=== PATIENT | female | born 1985 | race Two or more races ===

== ENCOUNTER 2021-03-25 16:36 | Inpatient (IN) | payer MEDICAID, OTHER ==
[~2021-03-25] VITALS: Ht 154.9 cm; Wt 44.0 kg
[2021-03-25] MEDS ORDERED: DOBUTamine 1000MCG/ML 250 ML IV ONE ×2 (17:00→19:15)
[2021-03-25 17:50] LABS: Basophils # (auto) 0 10 ^3/uL (0-0.2); Basophils % (auto) 0.6 % (0.0-2.0); Eosinophils # (auto) 0.1 10 ^3/uL (0-0.8); Eosinophils % (auto) 2.2 % (0.0-7.0); Hematocrit 43.3 % (36.0-46.0); Hemoglobin 14.6 g/dL (12.2-16.2); Lymphocytes # (auto) 1.3 10 ^3/uL (0.4-5.4); Lymphocytes % (auto) 32.2 % (10.0-50.0); Mean Corpuscular Hemoglobin 31.3 pg (28.0-32.0); Mean Corpuscular Hgb Conc. 33.8 g/dL (32.0-36.0); Mean Corpuscular Volume 92.6 fL (80.0-100.0); Monocytes # (auto) 0.3 10 ^3/uL (0-1.3); Monocytes % (auto) 7.1 % (0.0-12.0); Neutrophils # (auto) 2.4 10 ^3/uL (1.6-8.6); Neutrophils % (auto) 57.9 % (37.0-80.0); Nucleated Red Blood Cells % 0.1 %; Red Blood Cells 4.68 10^6/uL (4.0-5.20); Red Cell Distribution Width 13.2 % (11.8-14.3); White Blood Cell 4.1 10^3/uL (4.4-10.8)
[2021-03-25 18:08] LABS: Alanine Aminotransferase 35 U/L (13-56); Anion Gap 7 (5-15); Aspartate Aminotransferase 26 U/L (15-37); BUN/Creatinine Ratio 14.3; Blood Urea Nitrogen 10 mg/dL (7-18); Calcium 8.7 mg/dL (8.5-10.1); Carbon Dioxide 24 mmol/L (21-32); Chloride 109 mmol/L (98-107); GFR African American 122 mL/min; GFR Non-African American 101 mL/min; Glucose 79 mg/dL (74-106); Magnesium 2.2 mg/dL (1.6-2.6); Potassium 3.5 mmol/L (3.5-5.1); Sodium 140 mmol/L (136-145)
[2021-03-25 18:12] LABS: Alkaline Phosphatase 84 U/L (45-117); INR 1.04 (0.9-1.15); Partial Thromboplastin Time 26.2 sec (23.6-33.0); Total Protein 8.1 g/dL (6.4-8.2)
[2021-03-25] MEDS ORDERED: MORPHINE SULFATE INJECTION 2 MG/ML SYRG IV PRN (18:15)
[2021-03-25] MEDS ORDERED: HYDROcodone-ACET 5/325MG TAB PO PRN (18:15)
[2021-03-25] MEDS ORDERED: ACETAMINOPHEN 325 MG TAB PO PRN ×3 (18:15→18:30)
[2021-03-25] MEDS ORDERED: NITROGLYCERIN 0.4 MG SL TAB SL PRN (18:15)
[2021-03-25] MEDS: SODIUM CHLORIDE 0.9% 1,000 ML IV SCH (21:00)
[2021-03-26 02:02] LABS: Albumin 3.7 g/dL (3.4-5.0); Calcium 8.1 mg/dL (8.5-10.1); Potassium 3.9 mmol/L (3.5-5.1)
[2021-03-26 02:05] LABS: BUN/Creatinine Ratio 12.3
[2021-03-26 02:09] LABS: Bilirubin, Total 1.2 mg/dL (0.2-1.0); Total Protein 7.5 g/dL (6.4-8.2)
[2021-03-26] MEDS: SODIUM CHLORIDE 0.9% 1,000 ML IV SCH ×2 (06:55→14:15)
[2021-03-26 07:36] LABS: Basophils # (auto) 0 10 ^3/uL (0-0.2); Basophils % (auto) 0.8 % (0.0-2.0); Eosinophils # (auto) 0 10 ^3/uL (0-0.8); Eosinophils % (auto) 1.1 % (0.0-7.0); Hematocrit 37.9 % (36.0-46.0); Hemoglobin 12.8 g/dL (12.2-16.2); Lymphocytes # (auto) 1.2 10 ^3/uL (0.4-5.4); Lymphocytes % (auto) 26.9 % (10.0-50.0); Mean Corpuscular Hemoglobin 31.3 pg (28.0-32.0); Mean Corpuscular Hgb Conc. 33.9 g/dL (32.0-36.0); Mean Corpuscular Volume 92.5 fL (80.0-100.0); Monocytes # (auto) 0.4 10 ^3/uL (0-1.3); Monocytes % (auto) 9.3 % (0.0-12.0); Neutrophils # (auto) 2.7 10 ^3/uL (1.6-8.6); Neutrophils % (auto) 61.9 % (37.0-80.0); Nucleated Red Blood Cells % 0.2 %; Red Blood Cells 4.09 10^6/uL (4.0-5.20); Red Cell Distribution Width 13.3 % (11.8-14.3); White Blood Cell 4.4 10^3/uL (4.4-10.8)
[2021-03-26 08:16] LABS: Magnesium 2.2 mg/dL (1.6-2.6)
[2021-03-26] MEDS ORDERED: ENOXAPARIN SOD 60 MG/0.6 ML SYRINGE SC SCH (10:00)
[2021-03-26] MEDS: DOBUTamine 1000MCG/ML 250 ML IV SCH (10:36)
[2021-03-26] MEDS ORDERED: LORazepam 2MG/ML-1ML VIAL ONE (17:18)
[2021-03-26 21:30] VITALS: BP 122/67
[2021-03-26 22:00] VITALS: BP 122/67
[2021-03-27] MEDS: SODIUM CHLORIDE 0.9% 1,000 ML IV SCH ×3 (00:11→20:15)
[2021-03-27] MEDS: DOBUTamine 1000MCG/ML 250 ML IV SCH ×2 (03:50→22:16)
[2021-03-27 05:30] VITALS: BP 105/55
[2021-03-27 09:00] VITALS: BP 121/70
[2021-03-27] MEDS ORDERED: ENOXAPARIN SOD 60 MG/0.6 ML SYRINGE SC SCH (10:00)
[2021-03-27 13:00] VITALS: BP 119/63
[2021-03-27 17:00] VITALS: BP 132/74
[2021-03-27 21:45] VITALS: BP 103/57
[2021-03-28 05:30] VITALS: BP 131/73
[2021-03-28] MEDS ORDERED: VANCOMYCIN 1GM/250ML 250 ML IV ONE (07:08)
[2021-03-28] MEDS ORDERED: LIDOCAINE 2%HCL (LOCAL ANESTH.) INJ 20ML MDV ONE (07:22)
[2021-03-28] MEDS ORDERED: MIDAZOLAM HCL 2MG/2ML 2ml VIAL (1mg/ml) ONE (07:22)
[2021-03-28] MEDS ORDERED: fentaNYL CITRATE 100 MCG/2 ML VL ONE (07:22)
[2021-03-28] MEDS ORDERED: IOHEXOL 350 MG/ML 100ML IJ ONE (07:48)
[2021-03-28] MEDS ORDERED: BACITRACIN INJ 50000 UNIT VIAL ONE (07:53)
[2021-03-28] MEDS ORDERED: VANCOMYCIN HCL 1000 MG VL ONE (07:54)
[2021-03-28] MEDS: VANCOMYCIN 1GM/250ML 250 ML IV SCH ×2 (10:00→21:59)
[2021-03-28] MEDS: ONDANSETRON HCL 4 MG/2 ML VIAL IV PRN (11:53)
[2021-03-28] MEDS: DOXYCYCLINE 100 MG TAB/CAP PO SCH ×2 (11:53→21:59)
[2021-03-28] MEDS: MORPHINE SULFATE INJECTION 2 MG/ML SYRG IV PRN ×2 (11:54→20:44)
[2021-03-28 14:17] VITALS: BP 122/89
[2021-03-28] MEDS: SODIUM CHLORIDE 0.9% 1,000 ML IV SCH ×2 (16:03→16:15)
[2021-03-28 17:00] VITALS: BP 110/68
[2021-03-28 21:19] VITALS: BP 109/68
[2021-03-29] MEDS: SODIUM CHLORIDE 0.9% 1,000 ML IV SCH (00:35)
[2021-03-29 06:00] LABS: Basophils # (auto) 0 10 ^3/uL (0-0.2); Basophils % (auto) 1.1 % (0.0-2.0); Eosinophils # (auto) 0.1 10 ^3/uL (0-0.8); Eosinophils % (auto) 4.3 % (0.0-7.0); Hematocrit 36.5 % (36.0-46.0); Hemoglobin 12.7 g/dL (12.2-16.2); Lymphocytes % (auto) 28.3 % (10.0-50.0); Mean Corpuscular Hemoglobin 31.8 pg (28.0-32.0); Mean Corpuscular Hgb Conc. 34.6 g/dL (32.0-36.0); Mean Corpuscular Volume 91.9 fL (80.0-100.0); Monocytes # (auto) 0.4 10 ^3/uL (0-1.3); Monocytes % (auto) 10.9 % (0.0-12.0); Neutrophils # (auto) 1.9 10 ^3/uL (1.6-8.6); Neutrophils % (auto) 55.4 % (37.0-80.0); Red Blood Cells 3.98 10^6/uL (4.0-5.20); Red Cell Distribution Width 12.8 % (11.8-14.3); White Blood Cell 3.4 10^3/uL (4.4-10.8)
[2021-03-29 07:05] LABS: BUN/Creatinine Ratio 15.4; Calcium 7.8 mg/dL (8.5-10.1); Magnesium 1.8 mg/dL (1.6-2.6); Potassium 4.1 mmol/L (3.5-5.1)
[2021-03-29] MEDS: ONDANSETRON HCL 4 MG/2 ML VIAL IV PRN (08:54)
[2021-03-29 09:00] VITALS: BP 111/75
[2021-03-29] MEDS: DOXYCYCLINE 100 MG TAB/CAP PO SCH (09:54)
[2021-03-29] MEDS ORDERED: VANCOMYCIN 1GM/250ML 250 ML IV ONE (10:00)
[2021-03-29 12:50] VITALS: BP 113/67
[2021-03-29 13:34] VITALS: BP 113/67
== END 2021-03-29 14:40 | disposition home or self-care (01) | DRG 171 ==
LOC: ER 16:36 → EDBD 16:36 → OVERFLOW 18:20 → WEST WING 03-26 19:51 → TELE-WESTW 03-27 00:23
PROVIDERS: ADMIT Internal Medicine; ATTEND Internal Medicine
PROC: 02H63JZ Insertion of Pacemaker Lead into Right Atrium, Percutaneous Approach (ICD-10-PCS; principal; 2021-03-28)
PROC: 0JH606Z Insertion of Pacemaker, Dual Chamber into Chest Subcutaneous Tissue and Fascia, Open Approach (ICD-10-PCS; 2021-03-28)
PROC: 02HK3JZ Insertion of Pacemaker Lead into Right Ventricle, Percutaneous Approach (ICD-10-PCS; 2021-03-28)
PROC: B517YZA Fluoroscopy of Left Subclavian Vein using Other Contrast, Guidance (ICD-10-PCS; 2021-03-28)
PROC: 4B02XSZ Measurement of Cardiac Pacemaker, External Approach (ICD-10-PCS; 2021-03-28)
DX: I44.2 Atrioventricular block, complete (principal); I49.9 Cardiac arrhythmia, unspecified; Z20.822 Contact with and (suspected) exposure to COVID-19; R79.89 Other specified abnormal findings of blood chemistry; Z90.49 Acquired absence of other specified parts of digestive tract
CPT/HCPCS: 33208; 36415; 71045; 80048; 80053; 83735; 84484; 84702; 85025; 85610; 85730; 87426; 93005; 93306; 96365; 96366; 96372; 99152; 99153; 99291; C1785; G0378; J2250; J2405

== ENCOUNTER 2021-11-26 15:07 | Emergency (ER) | payer MEDICAID ==
[~2021-11-26] VITALS: Ht 154.9 cm; Wt 38.6 kg
[2021-11-26 16:14] LABS: Urine Bacteria FEW /hpf (None Seen); Urine Blood 1+ /uL (Negative); Urine Specific Gravity 1.002 (1.001-1.035); Urine WBC 4 /hpf (0 - 5)
[2021-11-26 16:58] LABS: Albumin 3.7 g/dL (3.4-5.0); BUN/Creatinine Ratio 11.1; Calcium 9.1 mg/dL (8.5-10.1); Magnesium 2.5 mg/dL (1.6-2.6); Potassium 4.4 mmol/L (3.5-5.1)
[2021-11-26 17:01] LABS: Bilirubin, Total 1.2 mg/dL (0.2-1.0); Total Protein 8.1 g/dL (6.4-8.2)
[2021-11-26 21:21] LABS: Basophils # (auto) 0 10 ^3/uL (0-0.2); Basophils % (auto) 0.5 % (0.0-2.0); Eosinophils # (auto) 0 10 ^3/uL (0-0.8); Eosinophils % (auto) 0.4 % (0.0-7.0); Hematocrit 39.4 % (36.0-46.0); Hemoglobin 13.7 g/dL (12.2-16.2); Lymphocytes # (auto) 1.5 10 ^3/uL (0.4-5.4); Lymphocytes % (auto) 25.9 % (10.0-50.0); Mean Corpuscular Hemoglobin 31.4 pg (28.0-32.0); Mean Corpuscular Hgb Conc. 34.7 g/dL (32.0-36.0); Mean Corpuscular Volume 90.5 fL (80.0-100.0); Monocytes # (auto) 0.4 10 ^3/uL (0-1.3); Monocytes % (auto) 7.4 % (0.0-12.0); Neutrophils # (auto) 3.8 10 ^3/uL (1.6-8.6); Neutrophils % (auto) 65.8 % (37.0-80.0); Red Blood Cells 4.35 10^6/uL (4.0-5.20); Red Cell Distribution Width 13.9 % (11.8-14.3); White Blood Cell 5.7 10^3/uL (4.4-10.8)
[2021-11-27 00:45] VITALS: BP 114/78
== END 2021-11-27 00:49 | disposition home or self-care (01) ==
LOC: ER 15:07
DX: R07.89 Other chest pain (principal); J45.909 Unspecified asthma, uncomplicated; Z32.02 Encounter for pregnancy test, result negative
CPT/HCPCS: 36415; 71045; 80053; 81001; 81025; 83735; 84443; 84484; 85025; 93005